=== PATIENT | male | born 1975 ===

== ENCOUNTER → 2018-08-01 02:52 | Emergency (ER) | payer MEDICARE ==
--- NOTE | 2018-08-01 03:03 | ED ---
Throat Pain/Nasal Congestion - HPI Summary HPI Summary: This patient is a 43 year old male presenting to [facility] with a chief complaint of - Allergies/Home Medications Allergies/Adverse Reactions: Allergies Allergy/AdvReac Type Severity Reaction Status Date / Time No Known Allergies Allergy Verified 04/15/17 08:40 PMH/Surg Hx/FS Hx/Imm Hx Endocrine/Hematology History: Denies: Hx Diabetes Cardiovascular History: Denies: Hx Hypertension, Hx Pacemaker/ICD History: Denies: Hx Renal Disease Sensory History: Denies: Hx Hearing Aid Psychiatric History: Denies: Hx Panic Disorder - Surgical History Surgery Procedure, Year, and Place: DENIES Discharge - Discharge Plan Referrals: Khushbu Madrigal MD [Primary Care Provider] - - Attestation Statements Document Initiated by Scribe: Yes
== END | disposition left against medical advice (07) ==
LOC: ED 02:52
DX: H57.89 Other specified disorders of eye and adnexa (principal); Z53.21 Procedure and treatment not carried out due to patient leaving prior to being seen by health care provider